=== PATIENT | female | born 1955 | race Caucasian/White ===

== ENCOUNTER 2018-09-07 01:09 | Inpatient (IN) ==
[2018-09-07 01:35] LABS: Basophils % 0.2 % (0.1-2.0); Eosinophils % 0.4 % (0.1-12.0); Lymphocytes % 10.2 % (10-50); Mean Corpuscular HGB Conc 30.4 g/dL (31.8-35.4); Mean Corpuscular Hemoglobin 25.3 pg (27.0-31.2); Mean Platelet Volume 6.6 fl (7.4-10.4); Monocytes # 0.3 K/mm3 (0.1-1.0); Neutrophils # 8.2 K/mm3 (1.8-7.8); Neutrophils % 86.2 % (37.0-80.0); Red Blood Count 2.53 M/mm3 (4.20-5.40); Red Cell Distribution Width 15.8 % (11.5-17.5); White Blood Count 9.5 K/mm3 (4.8-10.8)
[2018-09-07 01:36] LABS: Hemoglobin 6.4 g/dL (12.2-16.2); Platelet Count 605 K/mm3 (142-424)
[2018-09-07 01:37] LABS: Microscopic, Urine URINE MICROSCOPIC (MICROSCOPIC)
[2018-09-07 01:46] LABS: Albumin Level 1.9 gm/dL (3.4-5.0); Albumin/Globulin Ratio 0.3 (1.1-1.8); Anion Gap 11.1 mEq/L (5-15); Bilirubin,Total 0.6 mg/dL (0.2-1.0); Calcium 8.4 mg/dL (8.5-10.1); Globulin 6.1 gm/dl (1.3-3.2)
[2018-09-07 01:47] LABS: ABG Base Excess 10.3 mmol/L (-2.4-2.3); ABG HCO3 33.1 mmhg (22.0-26.0); ABG Oxygen Saturation 95 % (90-100); ABG PCO2 41.5 mmhg (35.0-45.0); ABG PH 7.52 mmol/L (7.35-7.45); ABG PO2 72.5 mmhg (80-100); ABG TCO2 34.4 mmhg (23-27); Allen's Test Y; Oxygen R/A %
--- NOTE | 2018-09-07 01:49 | Emergency Department Note ---
ED Disposition Clinical Impression: Hypokalemia, Hyponatremia, Tobacco use, Weight loss, non-intentional, Elevated C-reactive protein Anemia Qualifiers: Anemia type: unspecified type Qualified Code(s): D64.9 - Anemia, unspecified COPD (chronic obstructive pulmonary disease) Qualifiers: COPD type: unspecified COPD Qualified Code(s): J44.9 - Chronic obstructive pulmonary disease, unspecified Disposition: Admitted As Inpatient Condition on Discharge: Serious Referrals: Provider,Referral, [Primary Care Provider] - - Critical Care Critical Care Time: No Attestation: On 09/07/18, the high probability of a clinically significant, sudden or life threatening deterioration of the following system(s) required my full and direct attention, intervention and personal management. The time I documented below is in addition to time spent performing reported procedures but includes the following listed in this critical care notation. Medical Decision Making - Medical Records Medical records reviewed: Yes: I reviewed the patient's medical records. - Valentin Inquiry Pt receiving controlled substance: No Vital Signs: 09/07/18 01:15 09/07/18 02:02 Temperature 98.5 F Temperature Source Oral Pulse Rate [Right] 101 H 88 Respiratory Rate 18 18 Blood Pressure [Right Arm] 109/70 L 92/62 L Blood Pressure Mean [Right Arm] 83 72 Blood Pressure Source [Right Arm] Automatic Cuff Automatic Cuff Blood Pressure Position [Right Arm] Supine Supine 02 Sat by Pulse Oximetry 100 100 Oxygen Delivery Method Room Air Room Air - Lab Data Lab results reviewed: Yes: I reviewed the patient's lab results. Lab Results 09/07/18 01:15: WBC 9.5, RBC 2.53 L, Hgb 6.4 L*, Hct 21.0 L*, MCV 83.0, MCH 25.3 L, MCHC 30.4 L, RDW 15.8, Plt Count 605 H, MPV 6.6 L, Neut % (Auto) 86.2 H, Lymph % (Auto) 10.2, [place] % (Auto) 3.0, Eos % (Auto) 0.4, Baso % (Auto) 0.2, Neut # (Auto) 8.2 H, Lymph # (Auto) 1.0, [place] # (Auto) 0.3, Eos # (Auto) 0.0, Baso # (Auto) 0.0, Total Counted 100, Neutrophils % (Manual) 86 H, Band Neutrophils % 3.0, Lymphocytes % (Manual) 7 L, Monocytes % (Manual) 3, Eosinophils % (Manual) 1, Platelet Estimate Moderate increase, Hypochromasia 3+, Anisocytosis 1+, Microcytosis 1+, Rouleaux 3+ 09/07/18 01:15: Sodium 132 L, Potassium 2.1 L*, Chloride 89 L, Carbon Dioxide 34 H, Anion Gap 11.1, BUN 8, Creatinine 0.84, Estimated Creat Clear 50, Estimated GFR 69, Est GFR ( Amer) 83, Glucose 123 H, Calcium 8.4 L, Total Bilirubin 0.6, AST 12 L, ALT 22, Alkaline Phosphatase 241 H, C-Reactive Protein 41.0 H, Total Protein 8.0, Albumin 1.9 L, Globulin 6.1 H, Albumin/Globulin Ratio 0.3 L 09/07/18 01:15: Lactate 0.7 09/07/18 01:45: Specimen Source R/r, O2 % R/a, ABG pH 7.52 H, ABG pCO2 41.5, ABG pO2 72.5 L, ABG HCO3 33.1 H, ABG Total CO2 34.4 H, ABG O2 Saturation 95, ABG Base Excess 10.3 H, Edgar Test Y 09/07/18 01:47: Stool Occult Blood Negative Result diagrams: 09/07/18 01:15 09/07/18 01:15 Orders (Tests/Meds): ED MEDICATIONS Generic Name Dose Route Start Last Admin Trade Name Freq PRN Reason Stop Dose Admin Sodium Chloride 1,000 mls @ 999 mls/hr 09/07/18 01:15 09/07/18 01:34 Sod Chlor 0.9% 1000ml Bag IV 09/07/18 02:15 999 mls/hr .Q1H1M LUIS Administration Sodium Chloride 250 mls @ 25 mls/hr 09/07/18 02:00 Sod Chlor 0.9% 250ml Bag IV 09/08/18 01:59 .Q10H LUIS Potassium Chloride/Water 100 mls @ 50 mls/hr 09/07/18 02:11 Potassium Chloride 20meq/100ml Ivpb IV 09/07/18 04:10 ONCE ONE Discontinued Medications Generic Name Dose Route Start Last Admin Trade Name Freq PRN Reason Stop Dose Admin Ketorolac Tromethamine 30 mg 09/07/18 01:14 09/07/18 01:34 Toradol 30mg/Ml Vial IV 09/07/18 01:15 30 mg ONCE ONE Administration Methylprednisolone Sodium Succinate 125 mg 09/07/18 01:14 09/07/18 01:34 Solu-Medrol 125mg/2ml Vial IV 09/07/18 01:15 125 mg ONCE ONE Administration Ondansetron HCl 4 mg 09/07/18 01:14 09/07/18 01:34 Zofran 4mg/2ml Vial IV 09/07/18 01:15 4 mg ONCE ONE Administration Potassium Chloride 40 meq 09/07/18 02:07 Klor-Con 20meq Tablet PO 09/07/18 02:08 ONCE ONE ORDERS Category Date Time Status Packed Red Cells [Red Blood Cells] Stat BBK 09/07/18 01:48 Ordered Type and Screen Stat BBK 09/07/18 01:48 Ordered XR chest 2V Stat Exams 09/07/18 01:11 Taken Antithrombin III, Func/Immunol Routine Lab 09/07/18 02:14 Ordered ESR [Erythrocyte Sedimentation Rate] Stat Lab 09/07/18 01:47 Ordered Factor V Leiden Mutation Routine Lab 09/07/18 02:13 Ordered HGB Fraction Profile Stat Lab 09/07/18 02:18 Ordered Iron and TIBC Routine Lab 09/07/18 02:12 Ordered PT/PTT Stat Lab 09/07/18 02:13 Ordered Reticulocyte % (Auto) Stat Lab 09/07/18 01:47 Ordered T4 (Thyroxine) Stat Lab 09/07/18 02:24 Ordered TSH [Thyroid Stimulating Hormone] Stat Lab 09/07/18 02:24 Ordered Troponin I Stat Lab 09/07/18 01:15 Received Troponin I Stat Lab 09/07/18 02:24 Ordered Urinalysis and Microscopic Stat Lab 09/07/18 01:15 Received Blood Culture Stat Micro 09/07/18 01:15 Received ABG [Arterial Blood Gas] Stat RT 09/07/18 01:23 Ordered - Radiology Data #1 Image(s): Chest Image Reviewed: Yes I reviewed the patient's radiology image Preliminary Findings: Abnormal (possible mass) - ECG Data Tracing #1 Normal Sinus Rhythm: Yes Ischemic changes: non-specific ST-T wave changes - Physician Consults Physician Consulted: kevin Reason -: Admission Weakness HPI - General Chief complaint: Weakness Stated complaint: generalized weakness Time Seen by Provider: 09/07/18 01:20 Mode of Arrival: EMS Source of Information: Patient, EMS, Medical Record Limitations: No Limitations Description of Symptoms (Recalled from ER Triage Doc. by RN): Pt seen 08/26/18 in [facility] for Upper resp infection, completed ABX and Steroids and still feel weak - History of Present Illness HPI Narrative: progressive weakness over the last few days - no melena reported and no known sig anemia and denied any chronic illness - does smoke and no vomiting or diarrhea MD Complaint: generalized weakness Onset (ago): day(s) Duration: constant Location: generalized Migration: none Severity: moderate Associated symptoms: other (wt loss ) - Related Data Home Medications Medication Instructions Recorded Confirmed Loratadine [Claritin 10mg Tablet] 10 mg PO DAILY 09/07/18 09/07/18 Allergies Allergy/AdvReac Type Severity Reaction Status Date / Time Penicillins Allergy Verified 09/07/18 01:13 [facility] History - Hepatitis A Screen Drug use history?: No High risk sexual behaviors?: No History of sexually transmitted infection?: No Currently employed?: No Childcare worker?: No Do you have indoor plumbing?: Yes Do you have electricity?: Yes Attestation statement:: This patient has been screened for Hepatitis A risk factors. I have reviewed the patient's past medical history: Yes - Social History Smoking Status: Current every day smoker Tobacco Type: cigarettes # Packs/Day (cigarettes): 1 Alcohol Intake: never Occupational Status: other - Psychiatric History Expresses thoughts of harming self/others: None Suicide Plan Description: No Plan ROS Obtained: Yes All systems reviewed & no additional complaints - Constitutional Constitutional: Reports as per HPI, Reports fatigue, Denies fever(s), Reports weight loss - Eyes Eyes: Denies change in vision - ENT Ears, Nose, Mouth, and Throat: Denies sore throat - Cardiovascular Cardiovascular: Denies chest pain at rest, Denies dyspnea - Respiratory Respiratory: Yes as per HPI, No cough, No non-productive cough, Yes dyspnea - Gastrointestinal Gastrointestingal: Denies: abdominal pain, diarrhea, black, tarry stools, nausea, vomiting - Genitourinary Female Genitourinary: Denies abnormal vaginal bleeding, Denies hematuria - Musculoskeletal Musculoskeletal: Denies joint pain, Reports back pain, Denies neck pain - Integumentary/Breasts Skin/Breast: Denies rash - Neurologic Neurologic: Denies abnormal speech, Denies focal weakness, Denies frequent falls, Denies headache(s), Denies seizure-like activity Physical Exam - General General appearance: alert - Head Head exam: normocephalic - Eye Eye exam: Present: PERRL, EOMI, other (pale conj). Absent: scleral icterus - ENT ENT exam: Present: mucous membranes dry - Neck Neck exam: Present: trachea midline. Absent: lymphadenopathy, thyromegaly - Respiratory Respiratory exam: Present: normal lung sounds bilaterally. Absent: respiratory distress - Cardiovascular Cardiovascular exam: Present: regular rate, systolic murmur, +S4 - Abdominal Exam Abdominal exam: Present: soft. Absent: tenderness, organomegaly - Rectal Exam Rectal exam: Present: normal inspection, normal rectal tone, heme (-) stool - Extremities Exam Extremities exam: Present: full ROM - Back Exam Back exam: Absent: CVA tenderness (R) - Neurological Exam Neurological exam: Present: alert, oriented X3, CN II-XII intact. Absent: motor sensory deficit - Psychiatric Psychiatric exam: Present: normal affect - Skin Skin exam: Absent: rash - Lymphatic Lymphatic Findings: no adenopathy
[2018-09-07 01:54] LABS: Potassium 2.1 mmoL/L (3.5-5.1)
[2018-09-07 01:56] LABS: Eosinophils % 1 % (0-3); Lymphocytes % 7 % (10-50); Monocytes % 3 % (2-9); Neutrophils % 86 % (42-76); Total Cells Counted 100
[2018-09-07 01:57] LABS: Anisocytosis 1+; Hypochromasia 3+; Rouleaux 3+
[2018-09-07 02:40] LABS: Reticulocyte % (Auto) 1.7 % (0.9-3.2)
[2018-09-07 02:49] LABS: INR 1.26 (0.9-1.1); Prothrombin Time 12.9 seconds (9.4-11.8)
[2018-09-07 03:04] LABS: Activated Partial Thrombo Time 44.2 seconds (23.6-34.0)
[2018-09-07 03:07] LABS: Thyroid Stimulating Hormone 0.96 uIU/ml (0.358-3.740)
[2018-09-07 03:09] LABS: Appearance,Urine CLEAR (Clear); Color,Urine YELLOW (Yellow)
[2018-09-07 03:10] LABS: Bilirubin,Urine Negative (Negative); Blood, Urine 3+ (Negative); Glucose,Urine (UA) Negative (Negative); Ketones,Urine Negative (Negative); Leukocyte Esterase,Urine TRACE (Negative); Protein,Urine TRACE (Negative)
[2018-09-07 03:11] LABS: Squamous Epithelial Cell,Urine 20-50 #/hpf (0-5)
[2018-09-07 03:26] LABS: Erythrocyte Sedimentation Rate > 120 mm/hr (0-30)
[2018-09-07 08:56] LABS: Monocytes # 0.1 K/mm3 (0.1-1.0)
[2018-09-07 09:11] LABS: Anion Gap 13.5 mEq/L (5-15); Blood Urea Nitrogen 10 mg/dL (7-18); Calcium 8.1 mg/dL (8.5-10.1); Carbon Dioxide 28 mmol/L (21.0-32.0); Chloride 98 mmol/L (98-107); Chol/HDL Ratio 9.1 (1-3.5); Cholesterol 128 mg/dL (140-200); Glucose 182 mg/dL (74-106); HDL Cholesterol 14 mg/dL (29-89); LDL Cholesterol 100 mg/dL (0-130); Phosphorous 2.6 mg/dL (2.4-4.9); Potassium 3.5 mmoL/L (3.5-5.1); Sodium 136 mmol/L (136-145); Triglycerides 68 mg/dL (30-200); VLDL Cholesterol 14 mg/dL (0-40)
[2018-09-07 09:17] LABS: Eosinophils % 0.2 % (0.1-12.0); Hematocrit 27.6 % (37.0-47.0); Lymphocytes # 0.4 K/mm3 (0.7-4.5); Lymphocytes % 3.5 % (10-50); Mean Corpuscular HGB Conc 32.1 g/dL (31.8-35.4); Mean Corpuscular Hemoglobin 27.1 pg (27.0-31.2); Mean Corpuscular Volume 84.5 fl (81-99); Mean Platelet Volume 6.7 fl (7.4-10.4); Monocytes % 0.8 % (1.7-9.3); Neutrophils # 10.6 K/mm3 (1.8-7.8); Neutrophils % 95.4 % (37.0-80.0); Platelet Count 527 K/mm3 (142-424); Red Blood Count 3.27 M/mm3 (4.20-5.40); White Blood Count 11.1 K/mm3 (4.8-10.8)
[2018-09-07 09:28] LABS: Hemoglobin 8.9 g/dL (12.2-16.2)
--- NOTE | 2018-09-07 09:41 | Progress Note ---
Internal Medicine - PN: Subj *Date: 09/07/18 *Time: 09:38 Interval history: Patient seen and examined. Anemia of unknown etiology. H&P to follow. She states that she feels better now that she is received 2 units of packed red blood cells. Hemoglobin hematocrit not available yet. Alert heart rate regular. Good air movement with slight bibasilar rales. Abdomen soft no masses palpated. Minimal leg edema. Exam Vital signs and Labs for Last 24 Hours: Temp Pulse Resp BP Pulse Ox 98.0 F 86 16 92/55 L 98 09/07/18 08:50 09/07/18 08:50 09/07/18 08:50 09/07/18 08:50 09/07/18 08:50 Laboratory Results - last 24 hr 09/07/18 01:15: Urine Color Yellow, Urine Appearance Clear, Urine pH 6.0, Ur Specific Rush 1.020, Urine Protein Trace, Urine Glucose (UA) Negative, Urine Ketones Negative, Urine Blood 3+, Urine Nitrate Negative, Urine Bilirubin Negative, Urine Urobilinogen 1.0, Ur Leukocyte Esterase Trace, Urine RBC 5-10, Urine WBC 3-5, Ur Squamous Epith Cells 20-50 09/07/18 01:15: WBC 9.5, RBC 2.53 L, Hgb 6.4 L*, Hct 21.0 L*, MCV 83.0, MCH 25.3 L, MCHC 30.4 L, RDW 15.8, Plt Count 605 H, MPV 6.6 L, Neut % (Auto) 86.2 H, Lymph % (Auto) 10.2, [place] % (Auto) 3.0, Eos % (Auto) 0.4, Baso % (Auto) 0.2, Neut # (Auto) 8.2 H, Lymph # (Auto) 1.0, [place] # (Auto) 0.3, Eos # (Auto) 0.0, Baso # (Auto) 0.0, Total Counted 100, Neutrophils % (Manual) 86 H, Band Neutrophils % 3.0, Lymphocytes % (Manual) 7 L, Monocytes % (Manual) 3, Eosinophils % (Manual) 1, Platelet Estimate Moderate increase, Hypochromasia 3+, Anisocytosis 1+, Microcytosis 1+, Rouleaux 3+ 09/07/18 01:15: Sodium 132 L, Potassium 2.1 L*, Chloride 89 L, Carbon Dioxide 34 H, Anion Gap 11.1, BUN 8, Creatinine 0.84, Estimated Creat Clear 50, Estimated GFR 69, Est GFR ( Amer) 83, Glucose 123 H, Calcium 8.4 L, Total Bilirubin 0.6, AST 12 L, ALT 22, Alkaline Phosphatase 241 H, C-Reactive Protein 41.0 H, Total Protein 8.0, Albumin 1.9 L, Globulin 6.1 H, Albumin/Globulin Ratio 0.3 L 09/07/18 01:15: Lactate 0.7 09/07/18 01:15: Troponin I < 0.02 09/07/18 01:45: Specimen Source R/r, O2 % R/a, ABG pH 7.52 H, ABG pCO2 41.5, ABG pO2 72.5 L, ABG HCO3 33.1 H, ABG Total CO2 34.4 H, ABG O2 Saturation 95, ABG Base Excess 10.3 H, Edgar Test Y 09/07/18 01:47: Stool Occult Blood Negative 09/07/18 02:10: ESR > 120 H, Retic Count (auto) 1.7 09/07/18 02:10: Blood Type O Negative, Antibody Screen Negative, Crossmatch (AHG) See Detail 09/07/18 02:10: PT 12.9 H, INR 1.26 H, APTT 44.2 H 09/07/18 02:10: Troponin I < 0.02, TSH 0.96, Thyroxine (T4) 7.4 09/07/18 02:15: Blood Type Confirm O Negative 09/07/18 05:45: Troponin I < 0.02 09/07/18 08:42: WBC 11.1 H, RBC 3.27 L D, Hgb 8.9 L D, Hct 27.6 L, MCV 84.5, MCH 27.1, MCHC 32.1, RDW 15.0, Plt Count 527 H, MPV 6.7 L, Neut % (Auto) 95.4 H, Lymph % (Auto) 3.5 L, [place] % (Auto) 0.8 L, Eos % (Auto) 0.2, Baso % (Auto) 0.0 L , Neut # (Auto) 10.6 H, Lymph # (Auto) 0.4 L, [place] # (Auto) 0.1, Eos # (Auto) 0.0, Baso # (Auto) 0.0 09/07/18 08:42: Sodium 136, Potassium 3.5 D, Chloride 98, Carbon Dioxide 28, Anion Gap 13.5, BUN 10, Creatinine 0.78, Estimated Creat Clear 51, Estimated GFR 75, Est GFR ( Amer) 91, Glucose 182 H D, Calcium 8.1 L, Phosphorus 2.6, Magnesium 2.1, Troponin I < 0.02, Triglycerides 68, Cholesterol 128 L, LDL Cholesterol 100, VLDL Cholesterol 14, HDL Cholesterol 14 L, Cholesterol/HDL Ratio 9.1 H I & O for Last 24 hours: Intake & Output 09/04/18 09/05/18 09/06/18 09/07/18 11:59 11:59 11:59 11:59 Intake Total 2740 / 2740 Balance 2740 / 2740 Weight 123 lb Assessment and Plan (1) Anemia Current visit: Yes Status: Acute Qualifiers: Anemia type: unspecified type Qualified Code(s): D64.9 - Anemia, unspecified Category: Medical Code(s): D64.9 - Anemia, unspecified (2) COPD (chronic obstructive pulmonary disease) Current visit: Yes Status: Acute Qualifiers: COPD type: unspecified COPD Qualified Code(s): J44.9 - Chronic obstructive pulmonary disease, unspecified Category: Medical Code(s): J44.9 - Chronic obstructive pulmonary disease, unspecified (3) Hypokalemia Current visit: Yes Status: Acute Category: Medical Code(s): E87.6 - Hypokalemia (4) Tobacco use Current visit: Yes Status: Acute Category: Medical Code(s): Z72.0 - Tobacco use (5) Bronchitis Current visit: No Status: Acute Category: Medical Code(s): J40 - Bronchitis, not specified as acute or chronic - Assessment and plan all Dx Assessment and Plan for all problems:: Anemia work-up. Transfusions.
[2018-09-07 09:53] LABS: Eosinophils % 0.1 % (0.1-12.0); Hematocrit 27.2 % (37.0-47.0); Hemoglobin 8.8 g/dL (12.2-16.2); Lymphocytes # 0.4 K/mm3 (0.7-4.5); Lymphocytes % 3.6 % (10-50); Mean Corpuscular HGB Conc 32.2 g/dL (31.8-35.4); Mean Corpuscular Hemoglobin 27.2 pg (27.0-31.2); Mean Corpuscular Volume 84.3 fl (81-99); Mean Platelet Volume 7.1 fl (7.4-10.4); Monocytes # 0.1 K/mm3 (0.1-1.0); Monocytes % 1.1 % (1.7-9.3); Neutrophils # 9.8 K/mm3 (1.8-7.8); Neutrophils % 95.2 % (37.0-80.0); Platelet Count 516 K/mm3 (142-424); Red Blood Count 3.23 M/mm3 (4.20-5.40); White Blood Count 10.3 K/mm3 (4.8-10.8)
[2018-09-07 10:10] LABS: Lymphocytes % 5 % (10-50); Neutrophils % 93 % (42-76); RBC Morphology Normal; Total Cells Counted 100
--- NOTE | 2018-09-07 10:44 | Pharmacy Consult Notes ---
[facility] Pharmacy VTE Monitoring - Patient Demographics Admission date: 09/07/18 Report Date: 09/07/18 Time: 10:44 Allergies/Adverse Reactions: Patient Allergies Penicillins Allergy (Verified 09/07/18 01:13) Height: 1.63 m Weight: 55.792 kg Patient Problems: Current Active Problems (Updated 09/07/18 @ 02:30 by Chuck Harris MD) Anemia (Acute) Hypokalemia (Acute) Hyponatremia (Acute) Tobacco use (Acute) Weight loss, non-intentional (Acute) Elevated C-reactive protein (Acute) COPD (chronic obstructive pulmonary disease) (Acute) - VTE Risk Labs: VTE Related Lab Results Hgb 8.8 g/dL (12.2-16.2) L 09/07/18 09:47 Hct 27.2 % (37.0-47.0) L 09/07/18 09:47 Plt Count 516 K/mm3 (142-424) H 09/07/18 09:47 PT 12.9 seconds (9.4-11.8) H 09/07/18 02:10 INR 1.26 (0.9-1.1) H 09/07/18 02:10 APTT 44.2 seconds (23.6-34.0) H 09/07/18 02:10 BUN 10 mg/dL (7-18) 09/07/18 08:42 Creatinine 0.78 mg/dL (0.55-1.02) 09/07/18 08:42 Estimated Creat Clear 51 mL/min (50-200) 09/07/18 08:42 Was VTE Risk Assessment Performed: Yes VTE Score: 3 VTE Risk Level: Low Risk - Prophylaxis VTE Prophylaxis Ordered?: Yes Types of VTE Prophylaxis: TEDS Knee High Location of Applied Device: Bilateral Lower Extremeties
--- NOTE | 2018-09-07 13:20 | History & Physical Report ---
*Admission Date: 09/07/18 *Chief complaint: Weakness *History of present illness: This 63-year-old white female has moved to this area from [facility]. She presented in the emergency room at [facility] last evening complaining of weakness over the past week or so. She denies any blood loss. She denies dark stools. She has not had vomiting or diarrhea. She was treated on 423 in the urgent care center for upper respiratory infection where she received antibiotics and steroids. In the emergency room evaluation her hemoglobin was found to be 6.4 with hematocrit of 21%. Her sodium was 132 and her potassium was 2.1. Liver functions were not significantly elevated with the exception of a 241 alkaline phosphatase. Stool occult blood was negative. She is admitted for further evaluation and treatment. [facility] History I have reviewed the patient's past medical history: Yes Medical History: Denies:: Cancer, Diabetes Mellitus Type 1, Diabetes Mellitus Type 2, Gastrointestinal Bleed, Hepatitis, MRSA, Renal Disease *Have you ever received a pneumonia vaccine?: Yes *Have you received a flu vaccine this season?: No Other Medical History: Reports: Anemia (She has been anemic in the past and has received B12 injections. ), Sinus Problems Comment:: She does not give a history of Mediterranean ancestry. She states she is part [place]. Other Surgeries: Yes: Hysterectomy-Total (For dysfunctional uterine bleeding. She was given hormones afterwards.) Amputation: No Fractures: No - *Social History Educational Level: Completed GED/General Educational Development Smoking Status: Current every day smoker Tobacco Type: cigarettes # Packs/Day (cigarettes): 1 Alcohol Intake: never *Occupational Status:: other *Travel in the last 8 weeks: None - Psychiatric History Expresses thoughts of harming self/others: None Suicide Plan Description: No Plan Family Hx:: Anemia (Her mother and daughter have both been anemic.), Cancer [employer]IN [employer]OR history: Abnormal Uterine Bleeding : 5 Para: 5 Review of Systems - Constitutional Reports fatigue, Reports lack of energy, Denies weight loss - Eyes Denies change in vision - ENT Reports neck pain, Reports sore throat, Denies dizziness - *Cardiovascular Reports shortness of breath with activity, Denies chest pain, Denies irregular heart rhythm - *Respiratory Reports change in phlegm color, Reports chest congestion, Reports cough - *Gastrointestinal Denies abdominal pain, Denies coffee ground vomit, Denies constipation, Denies vomiting blood, Denies bright, red blood in stools, Denies black, tarry stools - *Genitourinary Denies abnormal periods - *Musculoskeletal Denies abnormal walking - Integumentary/Breasts Denies bleeding lesions, Denies wounds - *Neurologic Denies abnormal speech, Denies localized weakness, Denies frequent falls, Denies headache(s), Denies seizure-like activity - Psychiatric Denies behavioral changes - Hematologic/Lymphatic Denies easy bleeding, Denies easy bruising, Denies enlarged lymph nodes Meds Home Medications Medication Instructions Recorded Confirmed Type RX: Loratadine [Claritin 10mg 10 mg PO DAILY 09/07/18 09/07/18 History Tablet] Allergies Allergy/AdvReac Type Severity Reaction Status Date / Time Penicillins Allergy Verified 09/07/18 01:13 Exam Vital signs and Labs for Last 24 Hours: Temp Pulse Resp BP Pulse Ox 97.8 F 80 16 97/59 L 99 09/07/18 09:50 09/07/18 09:50 09/07/18 09:50 09/07/18 09:50 09/07/18 09:50 Laboratory Results - last 24 hr 09/07/18 01:15: Urine Color Yellow, Urine Appearance Clear, Urine pH 6.0, Ur Specific [place] 1.020, Urine Protein Trace, Urine Glucose (UA) Negative, Urine Ketones Negative, Urine Blood 3+, Urine Nitrate Negative, Urine Bilirubin Negative, Urine Urobilinogen 1.0, Ur Leukocyte Esterase Trace, Urine RBC 5-10, Urine WBC 3-5, Ur Squamous Epith Cells 20-50 09/07/18 01:15: WBC 9.5, RBC 2.53 L, Hgb 6.4 L*, Hct 21.0 L*, MCV 83.0, MCH 25.3 L, MCHC 30.4 L, RDW 15.8, Plt Count 605 H, MPV 6.6 L, Neut % (Auto) 86.2 H, Lymph % (Auto) 10.2, [place] % (Auto) 3.0, Eos % (Auto) 0.4, Baso % (Auto) 0.2, Neut # (Auto) 8.2 H, Lymph # (Auto) 1.0, [place] # (Auto) 0.3, Eos # (Auto) 0.0, Baso # (Auto) 0.0, Total Counted 100, Neutrophils % (Manual) 86 H, Band Neutrophils % 3.0, Lymphocytes % (Manual) 7 L, Monocytes % (Manual) 3, Eosinophils % (Manual) 1, Platelet Estimate Moderate increase, Hypochromasia 3+, Anisocytosis 1+, Microcytosis 1+, Rouleaux 3+ 09/07/18 01:15: Sodium 132 L, Potassium 2.1 L*, Chloride 89 L, Carbon Dioxide 34 H, Anion Gap 11.1, BUN 8, Creatinine 0.84, Estimated Creat Clear 50, Estimated GFR 69, Est GFR ( Amer) 83, Glucose 123 H, Calcium 8.4 L, Total Bilirubin 0.6, AST 12 L, ALT 22, Alkaline Phosphatase 241 H, C-Reactive Protein 41.0 H, Total Protein 8.0, Albumin 1.9 L, Globulin 6.1 H, Albumin/Globulin Ratio 0.3 L 09/07/18 01:15: Lactate 0.7 09/07/18 01:15: Troponin I < 0.02 09/07/18 01:45: Specimen Source R/r, O2 % R/a, ABG pH 7.52 H, ABG pCO2 41.5, ABG pO2 72.5 L, ABG HCO3 33.1 H, ABG Total CO2 34.4 H, ABG O2 Saturation 95, ABG Base Excess 10.3 H, Edgar Test Y 09/07/18 01:47: Stool Occult Blood Negative 09/07/18 02:10: ESR > 120 H, Retic Count (auto) 1.7 09/07/18 02:10: Blood Type O Negative, Antibody Screen Negative, Crossmatch (AHG) See Detail 09/07/18 02:10: PT 12.9 H, INR 1.26 H, APTT 44.2 H 09/07/18 02:10: Troponin I < 0.02, TSH 0.96, Thyroxine (T4) 7.4 09/07/18 02:15: Blood Type Confirm O Negative 09/07/18 05:45: Troponin I < 0.02 09/07/18 08:42: WBC 11.1 H, RBC 3.27 L D, Hgb 8.9 L D, Hct 27.6 L, MCV 84.5, MCH 27.1, MCHC 32.1, RDW 15.0, Plt Count 527 H, MPV 6.7 L, Neut % (Auto) 95.4 H, Lymph % (Auto) 3.5 L, [place] % (Auto) 0.8 L, Eos % (Auto) 0.2, Baso % (Auto) 0.0 L , Neut # (Auto) 10.6 H, Lymph # (Auto) 0.4 L, [place] # (Auto) 0.1, Eos # (Auto) 0.0, Baso # (Auto) 0.0 09/07/18 08:42: Sodium 136, Potassium 3.5 D, Chloride 98, Carbon Dioxide 28, Anion Gap 13.5, BUN 10, Creatinine 0.78, Estimated Creat Clear 51, Estimated GFR 75, Est GFR ( Amer) 91, Glucose 182 H D, Calcium 8.1 L, Phosphorus 2.6, Magnesium 2.1, Troponin I < 0.02, Triglycerides 68, Cholesterol 128 L, LDL Cholesterol 100, VLDL Cholesterol 14, HDL Cholesterol 14 L, Cholesterol/HDL Ratio 9.1 H 09/07/18 09:47: WBC 10.3, RBC 3.23 L, Hgb 8.8 L, Hct 27.2 L, MCV 84.3, MCH 27.2, MCHC 32.2, RDW 15.0, Plt Count 516 H, MPV 7.1 L, Neut % (Auto) 95.2 H, Lymph % (Auto) 3.6 L, [place] % (Auto) 1.1 L, Eos % (Auto) 0.1, Baso % (Auto) 0.0 L, Neut # (Auto) 9.8 H, Lymph # (Auto) 0.4 L, [place] # (Auto) 0.1, Eos # (Auto) 0.0, Baso # (Auto) 0.0, Total Counted 100, Neutrophils % (Manual) 93 H, Band Neutrophils % 2.0, Lymphocytes % (Manual) 5 L, Platelet Estimate Slight increase, RBC Morphology Normal I & O for Last 24 hours: Intake & Output 09/05/18 09/06/18 09/07/18 09/08/18 11:59 11:59 11:59 11:59 Intake Total 2740 / 2740 Balance 2740 / 2740 Weight 123 lb - Constitutional no acute distress - *Routine HEENT Exam Head: Present: normocephalic Eye: Present: PERRL. Absent: conjunctival icterus ENT: Present: mucous membranes moist - *Routine Neck Exam Absent: thyromegaly - Routine Chest/Breast/Axilla Exam Chest wall: Absent: tenderness Breast: Absent: swelling Axillae: Absent: lymphadenopathy - *Routine Respiratory Exam Present: CTA bilaterally Comments: Only a few bibasilar rales. - *Routine Cardiovascular Exam Present: RRR - *Routine Abdominal Exam Present: soft. Absent: tenderness, organomegaly - *Routine Rectal Exam Comments: Not done - *Routine Extremities Exam Absent: edema - *Routine Skin Exam Present: pallor. Absent: petechiae, wounds, ecchymosis - *Routine Neurological Exam Present: alert, oriented X3. Absent: motor deficit Assessment and Plan (1) Anemia Current visit: Yes Status: Acute Qualifiers: Anemia type: unspecified type Qualified Code(s): D64.9 - Anemia, unspecified Category: Medical Code(s): D64.9 - Anemia, unspecified (2) COPD (chronic obstructive pulmonary disease) Current visit: Yes Status: Acute Qualifiers: COPD type: unspecified COPD Qualified Code(s): J44.9 - Chronic obstructive pulmonary disease, unspecified Category: Medical Code(s): J44.9 - Chronic obstructive pulmonary disease, unspecified (3) Hypokalemia Current visit: Yes Status: Acute Category: Medical Code(s): E87.6 - Hypokalemia (4) Tobacco use Current visit: Yes Status: Acute Category: Medical Code(s): Z72.0 - Tobacco use (5) Bronchitis Current visit: No Status: Acute Category: Medical Code(s): J40 - Bronchitis, not specified as acute or chronic (6) Abnormal chest x-ray Current visit: Yes Status: Acute Category: Medical Code(s): R93.89 - Abnormal findings on diagnostic imaging of other specified body structures (7) Elevated partial thromboplastin time (PTT) Current visit: Yes Status: Acute Category: Medical Code(s): R79.1 - Abno rmal coagulation profile (8) Elevated INR Current visit: Yes Status: Acute Category: Medical Code(s): R79.1 - Abnormal coagulation profile (9) Hyponatremia Current visit: Yes Status: Acute Category: Medical Code(s): E87.1 - Hypo- osmolality and hyponatremia - Assessment and plan all Dx Assessment and Plan for all problems:: Vitamin B12 level is ordered. CT of the chest due to the abnormal chest x-ray. CT of the abdomen due to the anemia. The patient's H&H is improved with transfusion. She states that she feels better.
--- NOTE | 2018-09-07 15:01 | Progress Note ---
Internal Medicine - PN: Subj *Date: 09/07/18 *Time: 14:53 Interval history: CT of the chest and of the abdomen indicates primary lung cancer with metastasis to the liver and adrenal glands and possibly bone. Exam Vital signs and Labs for Last 24 Hours: Temp Pulse Resp BP Pulse Ox 97.8 F 80 16 97/59 L 99 09/07/18 09:50 09/07/18 09:50 09/07/18 09:50 09/07/18 09:50 09/07/18 09:50 Laboratory Results - last 24 hr 09/07/18 01:15: Urine Color Yellow, Urine Appearance Clear, Urine pH 6.0, Ur Specific [place] 1.020, Urine Protein Trace, Urine Glucose (UA) Negative, Urine Ketones Negative, Urine Blood 3+, Urine Nitrate Negative, Urine Bilirubin Negative, Urine Urobilinogen 1.0, Ur Leukocyte Esterase Trace, Urine RBC 5-10, Urine WBC 3-5, Ur Squamous Epith Cells 20-50 09/07/18 01:15: WBC 9.5, RBC 2.53 L, Hgb 6.4 L*, Hct 21.0 L*, MCV 83.0, MCH 25.3 L, MCHC 30.4 L, RDW 15.8, Plt Count 605 H, MPV 6.6 L, Neut % (Auto) 86.2 H, Lymph % (Auto) 10.2, [place] % (Auto) 3.0, Eos % (Auto) 0.4, Baso % (Auto) 0.2, Neut # (Auto) 8.2 H, Lymph # (Auto) 1.0, [place] # (Auto) 0.3, Eos # (Auto) 0.0, Baso # (Auto) 0.0, Total Counted 100, Neutrophils % (Manual) 86 H, Band Neutrophils % 3.0, Lymphocytes % (Manual) 7 L, Monocytes % (Manual) 3, Eosinophils % (Manual) 1, Platelet Estimate Moderate increase, Hypochromasia 3+, Anisocytosis 1+, Microcytosis 1+, Rouleaux 3+ 09/07/18 01:15: Sodium 132 L, Potassium 2.1 L*, Chloride 89 L, Carbon Dioxide 34 H, Anion Gap 11.1, BUN 8, Creatinine 0.84, Estimated Creat Clear 50, Estimated GFR 69, Est GFR ( Amer) 83, Glucose 123 H, Calcium 8.4 L, Total Bilirubin 0.6, AST 12 L, ALT 22, Alkaline Phosphatase 241 H, C-Reactive Protein 41.0 H, Total Protein 8.0, Albumin 1.9 L, Globulin 6.1 H, Albumin/Globulin Ratio 0.3 L 09/07/18 01:15: Lactate 0.7 09/07/18 01:15: Troponin I < 0.02 09/07/18 01:45: Specimen Source R/r, O2 % R/a, ABG pH 7.52 H, ABG pCO2 41.5, ABG pO2 72.5 L, ABG HCO3 33.1 H, ABG Total CO2 34.4 H, ABG O2 Saturation 95, ABG Base Excess 10.3 H, Edgar Test Y 09/07/18 01:47: Stool Occult Blood Negative 09/07/18 02:10: ESR > 120 H, Retic Count (auto) 1.7 09/07/18 02:10: Blood Type O Negative, Antibody Screen Negative, Crossmatch (AHG) See Detail 09/07/18 02:10: PT 12.9 H, INR 1.26 H, APTT 44.2 H 09/07/18 02:10: Troponin I < 0.02, TSH 0.96, Thyroxine (T4) 7.4 09/07/18 02:15: Blood Type Confirm O Negative 09/07/18 05:45: Troponin I < 0.02 09/07/18 08:42: WBC 11.1 H, RBC 3.27 L D, Hgb 8.9 L D, Hct 27.6 L, MCV 84.5, MCH 27.1, MCHC 32.1, RDW 15.0, Plt Count 527 H, MPV 6.7 L, Neut % (Auto) 95.4 H, Lymph % (Auto) 3.5 L, [place] % (Auto) 0.8 L, Eos % (Auto) 0.2, Baso % (Auto) 0.0 L , Neut # (Auto) 10.6 H, Lymph # (Auto) 0.4 L, [place] # (Auto) 0.1, Eos # (Auto) 0.0, Baso # (Auto) 0.0 09/07/18 08:42: Sodium 136, Potassium 3.5 D, Chloride 98, Carbon Dioxide 28, Anion Gap 13.5, BUN 10, Creatinine 0.78, Estimated Creat Clear 51, Estimated GFR 75, Est GFR ( Amer) 91, Glucose 182 H D, Calcium 8.1 L, Phosphorus 2.6, Magnesium 2.1, Troponin I < 0.02, Triglycerides 68, Cholesterol 128 L, LDL Cholesterol 100, VLDL Cholesterol 14, HDL Cholesterol 14 L, Cholesterol/HDL Ratio 9.1 H 09/07/18 09:47: WBC 10.3, RBC 3.23 L, Hgb 8.8 L, Hct 27.2 L, MCV 84.3, MCH 27.2, MCHC 32.2, RDW 15.0, Plt Count 516 H, MPV 7.1 L, Neut % (Auto) 95.2 H, Lymph % (Auto) 3.6 L, [place] % (Auto) 1.1 L, Eos % (Auto) 0.1, Baso % (Auto) 0.0 L, Neut # (Auto) 9.8 H, Lymph # (Auto) 0.4 L, [place] # (Auto) 0.1, Eos # (Auto) 0.0, Baso # (Auto) 0.0, Total Counted 100, Neutrophils % (Manual) 93 H, Band Neutrophils % 2.0, Lymphocytes % (Manual) 5 L, Platelet Estimate Slight increase, RBC Morphology Normal I & O for Last 24 hours: Intake & Output 09/05/18 09/06/18 09/07/18 09/08/18 11:59 11:59 11:59 11:59 Intake Total 2740 / 2740 Balance 2740 / 2740 Weight 123 lb Assessment and Plan (1) Metastatic primary lung cancer Current visit: Yes Status: Acute Category: Medical Code(s): C34.90 - Malignant neoplasm of unspecified part of unspecified bronchus or lung (2) Metastases to the liver Current visit: Yes Status: Acute Category: Medical Code(s): C78.7 - Secondary malignant neoplasm of liver and intrahepatic bile duct (3) Anemia Current visit: Yes Status: Acute Qualifiers: Anemia type: unspecified type Qualified Code(s): D64.9 - Anemia, unspecified Category: Medical Code(s): D64.9 - Anemia, unspecified (4) COPD (chronic obstructive pulmonary disease) Current visit: Yes Status: Acute Qualifiers: COPD type: unspecified COPD Qualified Code(s): J44.9 - Chronic obstructive pulmonary disease, unspecified Category: Medical Code(s): J44.9 - Chronic obstructive pulmonary disease, unspecified (5) Hypokalemia Current visit: Yes Status: Acute Category: Medical Code(s): E87.6 - Hypokalemia (6) Tobacco use Current visit: Yes Status: Acute Category: Medical Code(s): Z72.0 - Tobacco use (7) Bronchitis Current visit: No Status: Acute Category: Medical Code(s): J40 - Bronchitis, not specified as acute or chronic (8) Abnormal chest x-ray Current visit: Yes Status: Acute Category: Medical Code(s): R93.89 - Abnormal findings on diagnostic imaging of other specified body structures (9) Elevated partial thromboplastin time (PTT) Current visit: Yes Status: Acute Category: Medical Code(s): R79.1 - Abnormal coagulation profile (10) Elevated INR Current visit: Yes Status: Acute Category: Medical Code(s): R79.1 - Abnormal coagulation profile (11) Hyponatremia Current visit: Yes Status: Acute Category: Medical Code(s): E87.1 - Hypo- osmolality and hyponatremia - Assessment and plan all Dx Assessment and Plan for all problems:: Pulmonary and oncology consults will be obtained
[2018-09-08 06:38] LABS: Lymphocytes % 6.9 % (10-50); Mean Corpuscular HGB Conc 31.7 g/dL (31.8-35.4); Mean Corpuscular Hemoglobin 26.5 pg (27.0-31.2); Mean Corpuscular Volume 83.7 fl (81-99); Mean Platelet Volume 6.9 fl (7.4-10.4); Monocytes # 0.4 K/mm3 (0.1-1.0); Monocytes % 2.7 % (1.7-9.3); Neutrophils # 13.5 K/mm3 (1.8-7.8); Neutrophils % 90.4 % (37.0-80.0); Platelet Count 533 K/mm3 (142-424); Red Blood Count 2.84 M/mm3 (4.20-5.40); Red Cell Distribution Width 15.5 % (11.5-17.5)
[2018-09-08 06:42] LABS: Hematocrit 23.8 % (37.0-47.0); Hemoglobin 7.5 g/dL (12.2-16.2)
--- NOTE | 2018-09-08 08:30 | Progress Note ---
Internal Medicine - PN: Subj *Date: 09/08/18 *Time: 09:27 Interval history: Patient does not feel well today. She states she is sampson. She has not slept since she has been here. Since receiving the contrast for the CT, she has had frequent stools. She has been up all night going to the bathroom. She denies nausea and vomiting. She states she is breathing okay. Her legs do hurt. Exam Vital signs and Labs for Last 24 Hours: Temp Pulse Resp BP Pulse Ox 98.2 F 81 17 104/54 L 100 09/08/18 03:47 09/08/18 03:47 09/08/18 03:47 09/08/18 03:47 09/08/18 08:00 Laboratory Results - last 24 hr 09/07/18 02:10: Crossmatch (AHG) See Detail 09/07/18 08:42: WBC 11.1 H, RBC 3.27 L D, Hgb 8.9 L D, Hct 27.6 L, MCV 84.5, MCH 27.1, MCHC 32.1, RDW 15.0, Plt Count 527 H, MPV 6.7 L, Neut % (Auto) 95.4 H, Lymph % (Auto) 3.5 L, [place] % (Auto) 0.8 L, Eos % (Auto) 0.2, Baso % (Auto) 0.0 L , Neut # (Auto) 10.6 H, Lymph # (Auto) 0.4 L, [place] # (Auto) 0.1, Eos # (Auto) 0.0, Baso # (Auto) 0.0 09/07/18 08:42: Sodium 136, Potassium 3.5 D, Chloride 98, Carbon Dioxide 28, Anion Gap 13.5, BUN 10, Creatinine 0.78, Estimated Creat Clear 51, Estimated GFR 75, Est GFR ( Amer) 91, Glucose 182 H D, Calcium 8.1 L, Phosphorus 2.6, Magnesium 2.1, Troponin I < 0.02, Triglycerides 68, Cholesterol 128 L, LDL Cholesterol 100, VLDL Cholesterol 14, HDL Cholesterol 14 L, Cholesterol/HDL Ratio 9.1 H 09/07/18 09:47: WBC 10.3, RBC 3.23 L, Hgb 8.8 L, Hct 27.2 L, MCV 84.3, MCH 27.2, MCHC 32.2, RDW 15.0, Plt Count 516 H, MPV 7.1 L, Neut % (Auto) 95.2 H, Lymph % (Auto) 3.6 L, [place] % (Auto) 1.1 L, Eos % (Auto) 0.1, Baso % (Auto) 0.0 L, Neut # (Auto) 9.8 H, Lymph # (Auto) 0.4 L, [place] # (Auto) 0.1, Eos # (Auto) 0.0, Baso # (Auto) 0.0, Total Counted 100, Neutrophils % (Manual) 93 H, Band Neutrophils % 2.0, Lymphocytes % (Manual) 5 L, Platelet Estimate Slight increase, RBC Morphology Normal 09/08/18 06:18: WBC 15.0 H D, RBC 2.84 L, Hgb 7.5 L*, Hct 23.8 L*, MCV 83.7, MCH 26.5 L, MCHC 31.7 L, RDW 15.5, Plt Count 533 H, MPV 6.9 L, Neut % (Auto) 90.4 H, Lymph % (Auto) 6.9 L, [place] % (Auto) 2.7, Eos % (Auto) 0.0 L, Baso % (Auto) 0.0 L , Neut # (Auto) 13.5 H, Lymph # (Auto) 1.0, [place] # (Auto) 0.4, Eos # (Auto) 0.0, Baso # (Auto) 0.0 09/08/18 06:18: Sodium 137, Potassium 3.0 L, Chloride 101, Carbon Dioxide 28, Anion Gap 11.0, BUN 10, Creatinine 0.70, Estimated Creat Clear 53, Estimated GFR 85, Est GFR ( Amer) 103, Glucose 103 D, Calcium 8.0 L I & O for Last 24 hours: Intake & Output 09/05/18 09/06/18 09/07/18 09/08/18 11:59 11:59 11:59 11:59 Intake Total 2740 / 2740 240 / 240 Balance 2740 / 2740 240 / 240 Weight 123 lb 127 lb 9 oz Radiology Reports for the Last 24 Hours: 09/07/2018 CT of the abdomen and pelvis IMPRESSION: The findings are consistent with metastatic disease to the liver, both adrenal glands, left retroperitoneal lymph nodes, and intertrochanteric region of the right femur in this patient with a spiculated right hilar mass suspected lung primary carcinoma. Suggest bronchoscopy with biopsy of the right hilar mass 09/07/2018 CT of the chest IMPRESSION: 1. 3.6 x 3.3 x 2.3 cm spiculated right anterior hilar mass with right hilar adenopathy as well as a suspicious liver lesion consistent with lung carcinoma with metastatic disease. There is a small satellite nodule in the right upper lobe. This mass occludes the anterior segmental bronchus of the right upper lobe and should be readily accessible by bronchoscopy for biopsy 2. COPD with centrilobular emphysema - Constitutional no acute distress - *Routine Respiratory Exam Comments: Bibasilar crackles - *Routine Cardiovascular Exam Present: RRR - *Routine Abdominal Exam Present: soft, normoactive bowel sounds. Absent: tenderness - *Routine Extremities Exam Present: pulses intact. Absent: edema, calf tenderness - *Routine Neurological Exam Present: alert, oriented X3 Assessment and Plan (1) Metastatic primary lung cancer Current visit: Yes Status: Acute Category: Medical Code(s): C34.90 - Malignant neoplasm of unspecified part of unspecified bronchus or lung (2) Metastases to the liver Current visit: Yes Status: Acute Category: Medical Code(s): C78.7 - Secondary malignant neoplasm of liver and intrahepatic bile duct (3) Anemia Current visit: Yes Status: Acute Qualifiers: Anemia type: unspecified type Qualified Code(s): D64.9 - Anemia, unspecified Category: Medical Code(s): D64.9 - Anemia, unspecified (4) COPD (chronic obstructive pulmonary disease) Current visit: Yes Status: Acute Qualifiers: COPD type: unspecified COPD Qualified Code(s): J44.9 - Chronic obstructive pulmonary disease, unspecified Category: Medical Code(s): J44.9 - Chronic obstructive pulmonary disease, unspecified (5) Hypokalemia Current visit: Yes Status: Acute Category: Medical Code(s): E87.6 - Hypokalemia (6) Tobacco use Current visit: Yes Status: Acute Category: Medical Code(s): Z72.0 - Tobacco use (7) Bronchitis Current visit: No Status: Acute Category: Medical Code(s): J40 - Bronchitis, not specified as acute or chronic (8) Abnormal chest x-ray Current visit: Yes Status: Acute Category: Medical Code(s): R93.89 - Abnormal findings on diagnostic imaging of other specified body structures (9) Elevated partial thromboplastin time (PTT) Current visit: Yes Status: Acute Category: Medical Code(s): R79.1 - Abnormal coagulation profile (10) Elevated INR Current visit: Yes Status: Acute Category: Medical Code(s): R79.1 - Abnormal coagulation profile (11) Hyponatremia Current visit: Yes Status: Acute Category: Medical Code(s): E87.1 - Hypo- osmolality and hyponatremia - Assessment and plan all Dx Assessment and Plan for all problems:: Dr. Bah has spoken with oncologist, Dr. Welch, who accepts patient for treatment in [facility]. Patient is aware of diagnosis.
[2018-09-08 08:33] LABS: Lymphocytes % 7 % (10-50); Neutrophils % 93 % (42-76); RBC Morphology Normal; Total Cells Counted 100
--- NOTE | 2018-09-08 14:39 | Progress Note ---
Internal Medicine - PN: Subj *Date: 09/08/18 *Time: 14:36 Interval history: The patient has been accepted for transfer to [facility], but there are no available beds (Dr. Bah spoke to Dr. Trerell at ). The patient is apparently planning to sign out AMA. Exam Vital signs and Labs for Last 24 Hours: Temp Pulse Resp BP Pulse Ox 98.4 F 76 20 111/52 L 99 09/08/18 12:45 09/08/18 12:45 09/08/18 12:45 09/08/18 12:45 09/08/18 12:45 Laboratory Results - last 24 hr 09/07/18 02:10: Blood Type O Negative, Antibody Screen Negative, Crossmatch (AHG) See Detail 09/07/18 02:10: Iron 14 L, TIBC 177 L, Iron Saturation 8 L, Unsaturated IBC 163 09/08/18 06:18: WBC 15.0 H D, RBC 2.84 L, Hgb 7.5 L*, Hct 23.8 L*, MCV 83.7, MCH 26.5 L, MCHC 31.7 L, RDW 15.5, Plt Count 533 H, MPV 6.9 L, Neut % (Auto) 90.4 H, Lymph % (Auto) 6.9 L, Fajardo % (Auto) 2.7, Eos % (Auto) 0.0 L, Baso % (Auto) 0.0 L , Neut # (Auto) 13.5 H, Lymph # (Auto) 1.0, F[place]ardo # (Auto) 0.4, Eos # (Auto) 0.0, Baso # (Auto) 0.0, Total Counted 100, Neutrophils % (Manual) 93 H, Lymphocytes % (Manual) 7 L, Platelet Estimate Slight increase, RBC Morphology Normal 09/08/18 06:18: Sodium 137, Potassium 3.0 L, Chloride 101, Carbon Dioxide 28, Anion Gap 11.0, BUN 10, Creatinine 0.70, Estimated Creat Clear 53, Estimated GFR 85, Est GFR ( Amer) 103, Glucose 103 D, Calcium 8.0 L I & O for Last 24 hours: Intake & Output 09/06/18 09/07/18 09/08/18 09/09/18 11:59 11:59 11:59 11:59 Intake Total 2740 / 2740 480 / 480 Balance 2740 / 2740 480 / 480 Weight 123 lb 127 lb 9 oz Assessment and Plan (1) Metastatic primary lung cancer Current visit: Yes Status: Acute Category: Medical Code(s): C34.90 - Malignant neoplasm of unspecified part of unspecified bronchus or lung (2) Metastases to the liver Current visit: Yes Status: Acute Category: Medical Code(s): C78.7 - Secondary malignant neoplasm of liver and intrahepatic bile duct (3) Anemia Current visit: Yes Status: Acute Qualifiers: Anemia type: unspecified type Qualified Code(s): D64.9 - Anemia, unspecified Category: Medical Code(s): D64.9 - Anemia, unspecified (4) COPD (chronic obstructive pulmonary disease) Current visit: Yes Status: Acute Qualifiers: COPD type: unspecified COPD Qualified Code(s): J44.9 - Chronic obstructive pulmonary disease, unspecified Category: Medical Code(s): J44.9 - Chronic obstructive pulmonary disease, unspecified (5) Hypokalemia Current visit: Yes Status: Acute Category: Medical Code(s): E87.6 - Hypokalemia (6) Tobacco use Current visit: Yes Status: Acute Category: Medical Code(s): Z72.0 - Tobacco use (7) Bronchitis Current visit: No Status: Acute Category: Medical Code(s): J40 - Bronchitis, not specified as acute or chronic (8) Abnormal chest x-ray Current visit: Yes Status: Acute Category: Medical Code(s): R93.89 - Abnormal findings on diagnostic imaging of other specified body structures (9) Elevated partial thromboplastin time (PTT) Current visit: Yes Status: Acute Category: Medical Code(s): R79.1 - Abnormal coagulation profile (10) Elevated INR Current visit: Yes Status: Acute Category: Medical Code(s): R79.1 - Abnormal coagulation profile (11) Hyponatremia Current visit: Yes Status: Acute Category: Medical Code(s): E87.1 - Hypo- osmolality and hyponatremia
--- NOTE | 2018-09-09 13:29 | Discharge Summary ---
General - General Admission date:: 09/07/18 Discharge date: 09/08/18 HPI HPI: This 63-year-old white female has moved to this area from [facility]. She presented in the emergency room at [facility] last evening complaining of weakness over the past week or so. She denies any blood loss. She denies dark stools. She has not had vomiting or diarrhea. She was treated on 08/26 in the urgent care center for an upper respiratory infection where she received antibiotics and steroids. In the emergency room evaluation her hemoglobin was found to be 6.4 with hematocrit of 21%. Her sodium was 132 and her potassium was 2.1. Liver functions were not significantly elevated with the exception of a 241 alkaline phosphatase. Stool occult blood was negative. She was admitted for further evaluation and treatment. Hospital Course Hospital Course: The patient had a chest x-ray which showed a 2.9 cm nodule in the right perihilar region suspicious for neoplasm. CT of the chest was recommended by radiology. There were other nodular densities noted that could be due to metastatic foci or noncalcified granulomas. The patient had an abdominal/pelvis CT which showed metastatic disease to the liver, the adrenal glands, the left retroperitoneal lymph nodes, and the intertrochanteric region of the right femur. Radiology felt she had a primary lung carcinoma. She had a chest CT showing a 3.6 x 3.3 x 2.3 cm spiculated right anterior hilar mass with right hilar adenopathy. The mass occluded the anterior segmental bronchus of the right upper lobe and radiology felt bronchoscopy would be necessary for biopsy. The patient did receive a blood transfusion and felt much better. Her H&H improved to 8.9 and 27.[address] again[address] Dr. Bah spoke with Dr. Welch who works in [facility]. She accepted the patient in transfer to [place]. The patient was reluctant to go to [place], therefore Dr. Bah spoke with Dr. Terrell at . There were no available beds but they did accept the patient on transfer. The patient did however then sign out AMA. Objective Vital signs: Temp Pulse Resp BP Pulse Ox 98.4 F 76 20 111/52 L 99 09/08/18 12:45 09/08/18 12:45 09/08/18 12:45 09/08/18 12:45 09/08/18 12:45 Narrative: - Constitutional no acute distress - *Routine HEENT Exam Head: Present: normocephalic Eye: Present: PERRL. Absent: conjunctival icterus ENT: Present: mucous membranes moist - *Routine Neck Exam Absent: thyromegaly - Routine Chest/Breast/Axilla Exam Chest wall: Absent: tenderness Breast: Absent: swelling Axillae: Absent: lymphadenopathy - *Routine Respiratory Exam Present: CTA bilaterally Comments: Only a few bibasilar rales. - *Routine Cardiovascular Exam Present: RRR - *Routine Abdominal Exam Present: soft. Absent: tenderness, organomegaly - *Routine Rectal Exam Comments: Not done - *Routine Extremities Exam Absent: edema - *Routine Skin Exam Present: pallor. Absent: petechiae, wounds, ecchymosis - *Routine Neurological Exam Present: alert, oriented X3. Absent: motor deficit Results Labs on day of discharge: Labs from last 24 hours 09/07/18 09/07/18 09:47 02:10 Vitamin B12 438 Blood Type O Negative Antibody Screen Negative Crossmatch (AHG) See Detail Preliminary micro results at discharge 09/07/18 01:15 Blood Culture - Preliminary Blood NO GROWTH AFTER 48 HOURS 09/07/18 01:15 Blood Culture - Preliminary Blood NO GROWTH AFTER 48 HOURS DS: Diagnosis - Discharge Diagnosis (1) Metastatic primary lung cancer Status: Acute (2) Metastases to the liver Status: Acute (3) Anemia Status: Acute (4) COPD (chronic obstructive pulmonary disease) Status: Acute (5) Hypokalemia Status: Acute (6) Tobacco use Status: Acute (7) Bronchitis Status: Acute (8) Abnormal chest x-ray Status: Acute (9) Elevated partial thromboplastin time (PTT) Status: Acute (10) Elevated INR Status: Acute (11) Hyponatremia Status: Acute Discharge Plan - Patient Discharge Instructions Patient Instructions: Blood Transfusion, DI for Blood Transfusion, DI for Hypokalemia, DI for Hyponatremia, Hyponatremia-Adult, Hypokalemia - Follow up Plan Disposition: Left Against Medical Advice Home Medications: Home Medications Medication Instructions Recorded Confirmed Type Loratadine [Claritin 10mg Tablet] 10 mg PO DAILY 09/07/18 09/07/18 History Prescriptions/Medication Reconciliation: No Action Loratadine [Claritin 10mg Tablet] 10 mg PO DAILY
[2018-09-10 13:53] LABS: Anti-Thrombin III Antigen 90 % (72-124)
== END 2018-09-08 14:44 | disposition left against medical advice (07) | DRG 181 ==
LOC: ER 01:09 → 2ND 02:20
PROVIDERS: ADMIT Family Medicine; ATTEND Family Medicine
CPT/HCPCS: 36415; 71020; 71046; 71260; 74177; 80048; 80053; 80061; 81001; 81241; 82272; 82607; 82803; 83021; 83540; 83550; 83605; 83735; 84100; 84436; 84443; 84484; 85007; 85025; 85044; 85300; 85301; 85610; 85651; 85660; 85730; 86140; 86850; 87040; 93005; 96365; 96366; 96375; 99285; G0328; J2405; P9016; Q9967